=== PATIENT | female | born 1930 | race Caucasian/White ===

== ENCOUNTER → 2018-12-01 15:21 | Outpatient (CLI) | payer MEDICARE, OTHER ==
[2018-12-01 16:13] LABS: EOSINOPHILS 6.6 % (0-7); HEMATOCRIT 36.8 % (36.0-48.0); HEMOGLOBIN 12.5 g/dL (12-16); LYMPHOCYTES 25.9 % (15-50); MCV 94.1 fL (80.0-100.0); MEAN PLATELET VOLUME 9.1 fL (7.4-10.4); MONOCYTES 17.1 % (2-11); NEUTROPHILS 49.4 % (40-80); PLATELET COUNT 226 10x3/uL (130-400); RBC 3.91 10x6/uL (4.00-5.40); RDW 14.8 % (11.5-14.5)
== END | disposition home or self-care (01) ==
LOC: D.LAB 15:21
PROVIDERS: Internal Medicine Gastroenterology
DX: R19.5 Other fecal abnormalities (principal); R19.4 Change in bowel habit; R19.7 Diarrhea, unspecified